=== PATIENT | male | born 1980 | race American Indian/Alaskan Native ===

== ENCOUNTER 2021-07-16 00:34 | Emergency (ER) | payer MEDICARE, OTHER ==
[~2021-07-16] VITALS: Ht 182.9 cm; Wt 161.9 kg
[~2021-07-16 00:34] MED LIST: AMOX500 PO; ANTOXYBENA OT; AZIT250 PO; CEPH500 PO; HYDGUAL120 PO; MULVITMIND PO; NEOPOLHYDS OT; OXYACE5T PO
== END 2021-07-16 04:26 | disposition home or self-care (01) ==
LOC: ER 00:34
DX: R04.0 Epistaxis (principal); Z79.891 Long term (current) use of opiate analgesic; Z79.899 Other long term (current) drug therapy
CPT/HCPCS: 99283; A9270

== ENCOUNTER 2021-07-20 19:28 | Emergency (ER) | payer MEDICARE, OTHER ==
[~2021-07-20] VITALS: Ht 182.9 cm; Wt 163.3 kg
== END 2021-07-20 19:48 | disposition home or self-care (01) ==
LOC: ER 19:28
DX: Z48.00 Encounter for change or removal of nonsurgical wound dressing (principal); D50.9 Iron deficiency anemia, unspecified; Z79.899 Other long term (current) drug therapy
CPT/HCPCS: 99281